=== PATIENT | male | born 1995 | race Two or more races ===

== ENCOUNTER 2019-09-10 02:35 | Emergency (ER) | payer SELFPAY ==
[~2019-09-10] VITALS: Ht 175.3 cm; Wt 78.1 kg
[2019-09-10] MEDS ORDERED: FAMOTIDINE 20 MG TABLET. PO ONE (03:00)
[2019-09-10] MEDS ORDERED: MULTIVIT INFUSN,ADULT 4,VIT K 10 ML, THIAMINE INJ 100 MG, FOLIC ACID INJ 1 MG in IV NOR... IV ONE (03:00)
[2019-09-10] MEDS ORDERED: NEOMY/BACITR/POLYMYXIN OINT PACKET. TP ONE (03:00)
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
[2019-09-10 03:11] LABS: BASO % 0 % (0-3); EOS % 0 % (0-3); HEMATOCRIT 43.7 % (39.0-53.0); HEMOGLOBIN 15.2 g/dL (13.0-17.5); LYMPH # 1.2 x10^3/uL (1.0-4.8); LYMPH % 10 % (24-48); MEAN CORPUSCULAR HEMOGLOBIN 33 pg (25-35); MEAN CORPUSCULAR HGB CONC 35 g/dL (31-37); MEAN CORPUSCULAR VOLUME 96 fL (79-100); MONO # 1.6 x10^3/uL (0.0-1.1); MONO % 14 % (0-9); NEUT # 8.6 x10^3/uL (1.8-7.7); NEUT % 75 % (31-73); PLATELET COUNT 283 x10^3/uL (140-400); RED BLOOD COUNT 4.55 x10^6/uL (4.30-5.70); WHITE BLOOD COUNT 11.4 x10^3/uL (4.0-11.0)
[2019-09-10] MEDS ORDERED: ACETAMINOPHEN 500 MG TABLET PO ONE (03:15)
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
[2019-09-10 03:21] LABS: PROTHROMBIN TIME PATIENT 14.5 SEC (11.7-14.0)
[2019-09-10 03:22] LABS: CALCIUM 9.3 mg/dL (8.5-10.1); CREATININE 1.4 mg/dL (0.7-1.3); GFR 61.7
[2019-09-10 03:29] LABS: ALBUMIN/GLOBULIN RATIO 1.2 (1.0-1.7); MAGNESIUM 2.4 mg/dL (1.8-2.4); TOTAL BILIRUBIN 0.6 mg/dL (0.2-1.0); TOTAL PROTEIN 7.3 g/dL (6.4-8.2)
[2019-09-10 03:34] VITALS: BP 133/74
[2019-09-10] MEDS ORDERED: DIPH,PERTUSS(ACELL),TET VAC/PF 0.5 ML SYRINGE. VAX IM ONE (03:45)
--- NOTE | 2019-09-10 03:59 | RAD ---
EXAM: CT Head without IV contrast INDICATION: Reason: unresponsiveness, possible seizure, pain / Spl. Instructions: / History: TECHNIQUE: Multi-detector row CT images were obtained of the head without the use of IV contrast. All CT scans performed at this facility utilize dose optimization techniques as appropriate to the exam, including the following: Automated exposure control and adjustment of the mA and/or KV according to patient size (this includes techniques or standardized protocols for targeted exams where dose is indication/reason for exam). COMPARISON: None FINDINGS: BRAIN PARENCHYMA: No evidence of acute intraparenchymal hemorrhage or infarct. No abnormal parenchymal density or mass. VENTRICLES & EXTRA-AXIAL SPACES: Ventricles are within normal limits. Basilar cisterns are patent. No pathologic extra-axial fluid collection or mass. ORBITS: Orbital contents are unremarkable. SINUSES: Visualized paranasal sinuses and mastoid air cells are clear. OSSEOUS & SOFT TISSUES: Calvarium and skull base are intact. IMPRESSION: Normal CT of the head without contrast. EXAM: CT Cervical Spine without IV contrast INDICATION: Reason: unresponsiveness, possible seizure, pain / Spl. Instructions: / History: TECHNIQUE: Multi-detector row CT images were obtained through the cervical spine without the use of IV contrast. Post-processing sagittal and coronal reconstructed images were obtained for interpretation. All CT scans performed at this facility utilize dose optimization techniques as appropriate to the exam, including the following: Automated exposure control and adjustment of the mA and/or KV according to patient size (this includes techniques or standardized protocols for targeted exams where dose is indication/reason for exam). COMPARISON: None FINDINGS: CRANIOCERVICAL JUNCTION: Unremarkable. ALIGNMENT: Alignment is within normal limits. OSSEOUS: No evidence of fracture or bone destruction. DISC SPACES: Unremarkable. FACET JOINTS: Unremarkable. SPINAL CANAL: Unremarkable. NEUROFORAMINA: Unremarkable. SOFT TISSUES: Unremarkable. IMPRESSION: Unremarkable C-spine CT. EXAM: CT HEAD AND CERVICAL SPINE WO, CHEST AP ONLY INDICATION: Reason: unresponsiveness, possible seizure, pain / Spl. Instructions: / History: . TECHNIQUE: Single view COMPARISON: None FINDINGS: The heart size is normal. The great vessels appear unremarkable. There is no hilar or mediastinal mass. Lungs show subtle nodular densities bilaterally, possibly reflecting prior granulomatous disease. There is no pleural effusion or pneumothorax. There are no significant osseous abnormalities. IMPRESSION: Subtle nodular bilateral pulmonary densities, possible sequelae of previous granulomatous disease. Correlation with CT chest could be performed in further evaluation when clinically feasible. Electronically signed by: Cleo Aguilera MD (09/10/2019 3:57 AM) [facility] [place]
--- NOTE | 2019-09-13 03:34 | EKG ---
[facility] [address] [place] [address] Test Date: 2019-09-10 Test Time: 03:12:37 Pat Name: JAYSON RYAN Department: Room: Gender: M [employer] Machine Operator: : [id number] Requested By: MAAME GUTIERREZ Order Number: [id number] Reading MD: Measurements Intervals [employer] Rate: 122 P: -17 MS: 108 QRS: 56 QRSD: 92 T: 45 QT: 326 QTc: 466 Interpretive Statements SINUS TACHYCARDIA OTHERWISE NORMAL ECG RI6.02 No previous ECG available for comparison
== END 2019-09-10 03:52 | disposition home or self-care (01) ==
LOC: ER 02:35
DX: S61.451A Open bite of right hand, initial encounter (principal); S09.90XA Unspecified injury of head, initial encounter; Z20.828 Contact with and (suspected) exposure to other viral communicable diseases; G40.89 Other seizures; E87.6 Hypokalemia; R55 Syncope and collapse; R05 Cough; R50.9 Fever, unspecified; R53.81 Other malaise; R06.02 Shortness of breath; R51 Headache; J45.909 Unspecified asthma, uncomplicated; K21.9 Gastro-esophageal reflux disease without esophagitis; F43.10 Post-traumatic stress disorder, unspecified; F17.200 Nicotine dependence, unspecified, uncomplicated; F10.20 Alcohol dependence, uncomplicated; Y90.9 Presence of alcohol in blood, level not specified; Z88.8 Allergy status to other drugs, medicaments and biological substances; Y04.1XXA Assault by human bite, initial encounter; Y93.89 Activity, other specified; Y92.89 Other specified places as the place of occurrence of the external cause; Y99.8 Other external cause status
CPT/HCPCS: 36415; 70450; 71045; 72125; 73130; 80053; 82140; 82550; 83605; 83735; 85025; 85610; 85730; 93005; 99285; G0480